=== PATIENT | female | born 1985 | race Caucasian/White ===

== ENCOUNTER 2023-04-01 13:25 | Emergency (ER) | payer BC ==
[~2023-04-01] VITALS: Ht 167.6 cm; Wt 61.0 kg
[2023-04-01 14:50] VITALS: BP 120/68
== END 2023-04-01 14:50 | disposition home or self-care (01) ==
LOC: ER 14:21
DX: F10.20 Alcohol dependence, uncomplicated (principal)
CPT/HCPCS: 99283